=== PATIENT | female | born 1970 | race African-American/Black ===

== ENCOUNTER 2022-01-18 08:35 | Emergency (ER) | payer MEDICAID ==
[~2022-01-18] VITALS: Ht 167.6 cm; Wt 136.0 kg
[2022-01-18] MEDS ORDERED: ACETAMINOPHEN 325MG TABLET PO ONE (08:45)
[2022-01-18] MEDS ORDERED: CYCLOBENZAPRINE 10MG TABLET PO ONE (08:45)
[2022-01-18 10:53] VITALS: BP 133/75
[2022-01-18] MEDS ORDERED: MELO-105 MT (11:18)
[2022-01-18] MEDS ORDERED: CYCL7.5T25 MT (11:18)
== END 2022-01-18 11:51 | disposition home or self-care (01) ==
LOC: ER 08:35
DX: M25.512 Pain in left shoulder (principal); V49.9XXA Car occupant (driver) (passenger) injured in unspecified traffic accident, initial encounter; Y93.89 Activity, other specified; Y92.89 Other specified places as the place of occurrence of the external cause; Y99.8 Other external cause status
CPT/HCPCS: 73030; 99283